=== PATIENT | female | born 1990 | race Caucasian/White ===

== ENCOUNTER 2022-07-20 12:55 | Inpatient (IN) | payer MEDICAID ==
[~2022-07-20] VITALS: Ht 167.6 cm; Wt 75.1 kg
[~2022-07-20 12:55] MED LIST: SERT-162 PO; VENL-193 PO
[2022-07-20] MEDS: NICOTINE POLACRILEX 2 MG LOZENGE PO PRN (14:20)
[2022-07-20 14:42] VITALS: BP 123/76
[2022-07-20] MEDS: SERTRALINE HCL 100 MG TABLET PO SCH (17:06)
[2022-07-20] MEDS: VENLAFAXINE HCL 75 MG ER CAPSULE PO SCH (17:06)
[2022-07-20] MEDS: RisperiDONE 1 MG TABLET PO SCH (17:06)
[2022-07-20] MEDS ORDERED: VENL-67 PO (18:14)
[2022-07-20] MEDS ORDERED: PNEUMOCOCCAL VACCINE POLYVALENT 0.5 ML VIAL [PPSV23] IM. ONE (18:30)
[2022-07-21] MEDS: VENLAFAXINE HCL 75 MG ER CAPSULE PO SCH (08:01)
[2022-07-21] MEDS: RisperiDONE 1 MG TABLET PO SCH ×2 (08:01→16:27)
[2022-07-21] MEDS: SERTRALINE HCL 100 MG TABLET PO SCH (08:02)
[2022-07-21 08:06] VITALS: BP 118/82
[2022-07-21] MEDS: NICOTINE POLACRILEX 2 MG LOZENGE PO PRN ×2 (08:14→16:27)
[2022-07-21 20:03] VITALS: BP 125/74
[2022-07-21] MEDS: ZOLPIDEM TARTRATE 10 MG TABLET PO PRN (21:26)
[2022-07-22] MEDS: VENLAFAXINE HCL 75 MG ER CAPSULE PO SCH (08:01)
[2022-07-22] MEDS: RisperiDONE 1 MG TABLET PO SCH ×2 (08:01→16:08)
[2022-07-22] MEDS: SERTRALINE HCL 100 MG TABLET PO SCH (08:01)
[2022-07-22] MEDS: NICOTINE POLACRILEX 2 MG LOZENGE PO PRN ×4 (08:28→22:19)
[2022-07-22 08:42] VITALS: BP 129/76
[2022-07-22 09:15] LABS: BASOPHILS % (AUTO) 0.4 % (0.0-2.0); EOSINOPHILS % (AUTO) 2.9 % (1.0-6.0); HEMATOCRIT 39.1 % (36-46); HEMOGLOBIN 12.9 g/dL (12.0-16.0); LYMPHOCYTES % (AUTO) 20.6 % (22.0-44.0); MEAN CORPUSCULAR HEMOGLOBIN 32.4 pg (26.0-34.0); MEAN CORPUSCULAR VOLUME 98 fL (80-100); MONOCYTES # (AUTO) 0.8 K/uL (0.1-1.0); MONOCYTES % (AUTO) 8.5 % (2.0-9.0); NEUTROPHILS # (AUTO) 6.7 K/uL (1.8-7.7); NEUTROPHILS % (AUTO) 67.6 % (40.0-70.0); PLATELET COUNT (AUTO) 277 K/uL (150-450); RED BLOOD CELL COUNT(AUTO) 3.99 MIL/uL (4.00-5.20); RED CELL DISTRIBUTION WIDTH 14.4 % (11.5-14.5)
[2022-07-22 09:24] LABS: HEMOGLOBIN A1C 4.9 % (3.8-5.6)
[2022-07-22 09:45] LABS: ALANINE AMINOTRANSFERASE 18 U/L (12-78); ALBUMIN 3.4 g/dL (3.4-5.0); ALKALINE PHOSPHATASE 75 U/L (46-116); ANION GAP 5 mmol/L (8-16); ASPARTATE AMINOTRANSFERASE 11 U/L (15-37); BILIRUBIN,TOTAL 0.2 mg/dL (0.1-1.0); CALCIUM, TOTAL 8.6 mg/dL (8.8-10.5); CARBON DIOXIDE 27 mmol/L (22-29); CHLORIDE 106 mmol/L (98-107); CHOL/HDL RATIO 2.9 (3.9-5.7); CHOLESTEROL 150 mg/dL (131-200); CREATININE 0.62 mg/dL (0.60-1.30); FREE T4 (FREE THYROXINE) 0.92 ng/dL (0.76-1.46); GLOMERULAR FILTR. RATE CALC > 60 mL/min (>60); GLUCOSE,RANDOM 116 mg/dL (70-110); HCG,QUANTITATIVE < 1 mIU/mL (0-6); HDL CHOLESTEROL 52 mg/dL (40-60); LDL CHOL (CALC.) 83 mg/dL (0-130); POTASSIUM 3.8 mmol/L (3.5-5.1); SODIUM SERUM 138 mmol/L (136-145); THYROID STIMULATING HORMONE 0.93 uIU/mL (0.36-3.74); TOTAL PROTEIN, SERUM 6.5 g/dL (6.4-8.2); TRIGLYCERIDES 74 mg/dL (15-150)
[2022-07-22] MEDS ORDERED: MAGNESIUM HYDROXIDE SUSPENSION 30 ML UDCUP PO PRN (10:00)
[2022-07-22] MEDS ORDERED: GuaiFENesin/D-METHORPHAN [SUGAR-FREE] 200-20MG/10 ML SYRUP UDCUP PO PRN (10:00)
[2022-07-22] MEDS ORDERED: CloNIDine HCL 0.1 MG TABLET PO PRN (10:00)
[2022-07-22] MEDS ORDERED: ONDANSETRON HCL 4 MG TABLET PO PRN (10:00)
[2022-07-22] MEDS ORDERED: IBUPROFEN 400 MG TABLET PO PRN (10:00)
[2022-07-22] MEDS ORDERED: LOPERAMIDE HCL 2 MG CAPSULE PO PRN (10:00)
[2022-07-22] MEDS ORDERED: MAG HYDROX/AL HYDROX/SIMETH ES 30 ML SUSPENSION UDCUP PO PRN (10:00)
[2022-07-22] MEDS ORDERED: PETROLATUM,WHITE 28 GM JELLY TP PRN (10:00)
[2022-07-22] MEDS ORDERED: DOCUSATE SODIUM 100 MG CAPSULE PO PRN (10:00)
[2022-07-22] MEDS ORDERED: NICOTINE 14 MG/24 HOUR PATCH TD PRN (10:00)
[2022-07-22] MEDS ORDERED: ALBUTEROL SULFATE HFA 90 MCG/PUFF 8 GM INHALER IH PRN (10:00)
[2022-07-22] MEDS: ACETAMINOPHEN 325 MG TABLET PO PRN (15:52)
[2022-07-22 20:03] VITALS: BP 119/80
[2022-07-22] MEDS: ZOLPIDEM TARTRATE 10 MG TABLET PO PRN (23:05)
[2022-07-23] MEDS: NICOTINE POLACRILEX 2 MG LOZENGE PO PRN ×4 (02:26→19:34)
[2022-07-23] MEDS: RisperiDONE 1 MG TABLET PO SCH ×2 (08:05→16:22)
[2022-07-23] MEDS: SERTRALINE HCL 100 MG TABLET PO SCH (08:05)
[2022-07-23] MEDS: VENLAFAXINE HCL 75 MG ER CAPSULE PO SCH (08:05)
[2022-07-23 08:24] VITALS: BP 115/65
[2022-07-23] MEDS: ACETAMINOPHEN 325 MG TABLET PO PRN (15:56)
[2022-07-23 22:28] VITALS: BP 105/56
[2022-07-24] MEDS: ZOLPIDEM TARTRATE 10 MG TABLET PO PRN (00:10)
[2022-07-24] MEDS: NICOTINE POLACRILEX 2 MG LOZENGE PO PRN ×2 (07:09→15:57)
[2022-07-24] MEDS: SERTRALINE HCL 100 MG TABLET PO SCH (08:14)
[2022-07-24] MEDS: VENLAFAXINE HCL 75 MG ER CAPSULE PO SCH (08:14)
[2022-07-24 08:15] VITALS: BP 127/60
[2022-07-24] MEDS: RisperiDONE 1 MG TABLET PO SCH (08:15)
[2022-07-24] MEDS ORDERED: VENL-67 PO (10:58)
[2022-07-24] MEDS ORDERED: SERT-440 PO (10:58)
[2022-07-24] MEDS ORDERED: RISP1TAB98 PO (10:58)
== END 2022-07-24 17:01 | disposition home or self-care (01) | DRG 750 ==
LOC: B3A 13:08
PROVIDERS: ADMIT Psychiatry & Neurology Child & Adolescent Psychiatry; ATTEND Psychiatry & Neurology Child & Adolescent Psychiatry
DX: F25.0 Schizoaffective disorder, bipolar type (principal); F10.10 Alcohol abuse, uncomplicated; G47.00 Insomnia, unspecified; J45.909 Unspecified asthma, uncomplicated; F19.10 Other psychoactive substance abuse, uncomplicated; Z79.899 Other long term (current) drug therapy
CPT/HCPCS: 80053; 80061; 83036; 84439; 84443; 84702; 85025; 86592; Q9967